=== PATIENT | male | born 1985 | race Two or more races ===

== ENCOUNTER 2017-03-13 13:41 | Emergency (ER) | payer MEDICAID, OTHER ==
[~2017-03-13] VITALS: Ht 190.5 cm; Wt 111.6 kg
[2017-03-13 16:53] VITALS: BP 148/94
[2017-03-13] MEDS ORDERED: ALBUTEROL SULF 2.5 MG/0.5ML(0.5%) NEB SOLN NEB ONE ×2 (17:15)
[2017-03-13] MEDS ORDERED: IPRATROPIUM BROM 0.5 MG/2.5ML INH SOL NEB ONE (17:15)
== END 2017-03-13 17:43 | disposition home or self-care (01) ==
LOC: ER 13:47
DX: J45.909 Unspecified asthma, uncomplicated (principal); H92.01 Otalgia, right ear; F17.210 Nicotine dependence, cigarettes, uncomplicated
CPT/HCPCS: 94640